=== PATIENT | male | born 2000 | race Hispanic/Latino ===

== ENCOUNTER 2022-10-26 15:26 | Emergency (ER) | payer OTHER ==
[~2022-10-26] VITALS: Ht 175.3 cm; Wt 96.2 kg
[2022-10-26 15:46] VITALS: BP 119/67; TEMP 98.2; O2SAT 95
[2022-10-26] MEDS ORDERED: LIDOCAINE 1% MDV 20ML VIAL SC ONE (17:55)
[2022-10-26] MEDS ORDERED: CEPHALEXIN 500 MG CAP PO ONE (17:55)
[2022-10-26] MEDS ORDERED: BOOSTRIX VACCINE (TETANUS/DIPHTH/ACEL. PERTUSSIS) 0.5ML SYR IM ONE (17:55)
[2022-10-26] MEDS ORDERED: CEPH500T PO (18:23)
== END 2022-10-26 18:33 | disposition home or self-care (01) ==
LOC: EDBD 15:26 → M ED 15:26
DX: S61.012A Laceration without foreign body of left thumb without damage to nail, initial encounter (principal); X58.XXXA Exposure to other specified factors, initial encounter; Y92.009 Unspecified place in unspecified non-institutional (private) residence as the place of occurrence of the external cause; Y93.89 Activity, other specified; Y99.8 Other external cause status

== ENCOUNTER 2022-10-26 15:42 | Emergency (ER) | payer OTHER ==
[~2022-10-26] VITALS: Ht 175.3 cm; Wt 96.2 kg
[2022-10-26 15:43] VITALS: BP 119/67; TEMP 98.2; O2SAT 95
[2022-10-26] MEDS ORDERED: CEPH500T PO (18:23)
== END 2022-10-26 15:55 | disposition home or self-care (01) ==
LOC: M ED 15:42
DX: Z53.21 Procedure and treatment not carried out due to patient leaving prior to being seen by health care provider (principal)

== ENCOUNTER 2023-10-07 14:10 | Emergency (ER) | payer OTHER ==
[~2023-10-07] VITALS: Ht 175.3 cm; Wt 81.4 kg
[~2023-10-07 14:10] MED LIST: CEPH500T PO
[2023-10-07 14:11] VITALS: BP 123/59; TEMP 98; O2SAT 97
[2023-10-07] MEDS: IBUPROFEN 600MG TAB PO ONE (17:32)
[2023-10-07] MEDS: BOOSTRIX VACCINE (TETANUS/DIPHTH/ACEL. PERTUSSIS) 0.5ML SYR IM.IMMUN ONE (17:33)
[2023-10-07] MEDS ORDERED: IBUP-1022 PO (17:34)
[2023-10-07] MEDS ORDERED: AMOX875T2 PO (17:34)
== END 2023-10-07 18:03 | disposition home or self-care (01) ==
LOC: M ED 14:10
DX: S51.831A Puncture wound without foreign body of right forearm, initial encounter (principal); Y92.9 Unspecified place or not applicable; Y93.9 Activity, unspecified; Y99.9 Unspecified external cause status; W54.0XXA Bitten by dog, initial encounter; Z79.2 Long term (current) use of antibiotics; Z79.1 Long term (current) use of non-steroidal anti-inflammatories (NSAID); Z23 Encounter for immunization